=== PATIENT | male | born 1950 ===

== ENCOUNTER 2017-12-17 08:13 | Outpatient (CLI) | payer OTHER ==
[~2017-12-17] VITALS: Ht 152.4 cm; Wt 77.1 kg
== END 2017-12-17 08:35 | disposition home or self-care (01) ==
LOC: OFIC 805 08:13
DX: H90.42 Sensorineural hearing loss, unilateral, left ear, with unrestricted hearing on the contralateral side (principal); H93.12 Tinnitus, left ear; R42 Dizziness and giddiness

== ENCOUNTER 2018-03-25 08:00 | Outpatient (CLI) | payer OTHER ==
[~2018-03-25] VITALS: Ht 152.4 cm; Wt 77.1 kg
== END 2018-03-25 08:15 | disposition home or self-care (01) ==
LOC: OFIC 805 08:00
DX: H90.42 Sensorineural hearing loss, unilateral, left ear, with unrestricted hearing on the contralateral side (principal); H93.12 Tinnitus, left ear; R42 Dizziness and giddiness

== ENCOUNTER 2018-07-01 09:00 | Outpatient (CLI) | payer OTHER ==
[~2018-07-01] VITALS: Ht 152.4 cm; Wt 77.1 kg
== END 2018-07-01 09:15 | disposition home or self-care (01) ==
LOC: OFIC 805 09:00
DX: H90.42 Sensorineural hearing loss, unilateral, left ear, with unrestricted hearing on the contralateral side (principal); H93.12 Tinnitus, left ear; R42 Dizziness and giddiness